=== PATIENT | male | born 1985 | race Caucasian/White ===

== ENCOUNTER 2016-12-20 17:05 | Emergency (ER) | payer MEDICAID ==
[~2016-12-20] VITALS: Ht 180.3 cm; Wt 148.8 kg
[2016-12-20 17:21] VITALS: BP 139/84
--- NOTE | 2016-12-20 17:50 | NUR ---
Patient taken from ED lobby to XRAY via wheelchair by tech.
--- NOTE | 2016-12-20 18:01 | NUR ---
Patient returned from XRAY, transferred back to ED lobby via wheelchair.
--- NOTE | 2016-12-20 20:00 | NUR ---
RESULT BACK AND NOTED BY ERMD AND FOR D/C.
[2016-12-20 20:01] VITALS: BP 139/84
--- NOTE | 2016-12-20 20:01 | NUR ---
Patient discharged with v/s stable. Written and verbal after care instructions given and explained. Patient alert, oriented and verbalized understanding of instructions. Ambulatory with steady gait. All questions addressed prior to discharge. ID band removed. Patient advised to follow up with PMD. Rx of MO +MOTRIN, NORCO given. Patient educated on indication of medication including possible reaction and side effects. Opportunity to ask questions provided and answered.
== END 2016-12-20 20:01 | disposition home or self-care (01) ==
LOC: MED 17:05
DX: M79.671 Pain in right foot (principal)

== ENCOUNTER 2022-06-05 17:19 | Emergency (ER) | payer MEDICAID, OTHER ==
[~2022-06-05] VITALS: Ht 177.8 cm; Wt 149.7 kg
[2022-06-05] MEDS ORDERED: ONDANSETRON 4 MG ODT PO ONE (17:55)
[2022-06-05] MEDS ORDERED: MORPHINE SULFATE 4 MG/ML SYR IM ONE (17:55)
--- NOTE | 2022-06-05 18:04 | NUR ---
PT C/O LOWER BACK PAIN X1 WEEK, DENIES INJURY STATES WAS WALKING WHEN PAIN STARTED, C/O 06/02 PAIN AT THIS TIME.
[2022-06-05] MEDS ORDERED: NAPR-54 PO (18:49)
[2022-06-05] MEDS ORDERED: LIDO4CRE18 TP (18:49)
[2022-06-05] MEDS ORDERED: CYCL-711 PO (18:49)
[2022-06-05 19:01] VITALS: BP 166/70
--- NOTE | 2022-06-05 19:03 | NUR ---
Patient discharged with v/s stable. Written and verbal after care instructions given and explained. Patient alert, oriented and verbalized understanding of instructions. Ambulatory with steady gait. All questions addressed prior to discharge. ID band removed. Patient advised to follow up with PMD. Rx of NORCO, FLEXERIL, LIDOCAINE CREAM given. Patient educated on indication of medication including possible reaction and side effects. Opportunity to ask questions provided and answered.
== END 2022-06-05 19:02 | disposition home or self-care (01) ==
LOC: MED 17:19
DX: M54.50 Low back pain, unspecified (principal); R03.0 Elevated blood-pressure reading, without diagnosis of hypertension; M41.56 Other secondary scoliosis, lumbar region
CPT/HCPCS: 72110; 96372; 99283; J2270; Q0162